=== PATIENT | female | born 1985 | race African-American/Black ===

== ENCOUNTER 2018-08-17 19:52 | Emergency (ER) | payer OTHER ==
[~2018-08-17] VITALS: Ht 157.5 cm; Wt 79.2 kg
[2018-08-17 21:21] VITALS: BP 155/96
== END 2018-08-17 21:22 | disposition home or self-care (01) ==
LOC: ER 19:52
DX: S03.41XA Sprain of jaw, right side, initial encounter (principal); S39.012A Strain of muscle, fascia and tendon of lower back, initial encounter; V49.88XA Car occupant (driver) (passenger) injured in other specified transport accidents, initial encounter; Y93.89 Activity, other specified; Y92.413 State road as the place of occurrence of the external cause; Y99.9 Unspecified external cause status
CPT/HCPCS: 99281